=== PATIENT | male | born 1955 | race Caucasian/White ===

== ENCOUNTER 2017-02-23 15:20 | Emergency (ER) | payer BC ==
[~2017-02-23] VITALS: Ht 175.3 cm; Wt 86.4 kg
[2017-02-23 16:12] VITALS: BP 126/76
== END 2017-02-23 16:38 | disposition home or self-care (01) ==
LOC: EMS 15:24
DX: L03.115 Cellulitis of right lower limb (principal); R03.0 Elevated blood-pressure reading, without diagnosis of hypertension
CPT/HCPCS: 99283

== ENCOUNTER → 2017-04-29 | Outpatient (CLI) | payer BC ==
[~2017-04-29] VITALS: Ht 175.3 cm; Wt 86.0 kg
[~2017-04-29] MED LIST: ACET-2902 PO; BACI30OI6 TP; IBUP-2070 PO; SULF1TAB42 PO
[2017-04-29 10:25] VITALS: BP 140/79
== END | disposition home or self-care (01) ==
LOC: HBOWC 09:55
PROVIDERS: ATTEND Podiatrist
DX: L97.311 Non-pressure chronic ulcer of right ankle limited to breakdown of skin (principal)
CPT/HCPCS: 97597

== ENCOUNTER → 2017-05-07 | Outpatient (CLI) | payer BC ==
[2017-05-07 10:23] VITALS: BP 140/85
== END | disposition home or self-care (01) ==
LOC: HBOWC 10:02
PROVIDERS: ATTEND Podiatrist
DX: L97.311 Non-pressure chronic ulcer of right ankle limited to breakdown of skin (principal)
CPT/HCPCS: 97597

== ENCOUNTER → 2017-05-14 | Outpatient (CLI) | payer BC ==
[2017-05-14 11:27] VITALS: BP 132/78
== END | disposition home or self-care (01) ==
LOC: HBOWC 10:03
PROVIDERS: ATTEND Podiatrist
DX: L97.311 Non-pressure chronic ulcer of right ankle limited to breakdown of skin (principal)
CPT/HCPCS: 97597

== ENCOUNTER → 2017-05-21 | Outpatient (CLI) | payer BC ==
[2017-05-21 11:33] VITALS: BP 116/65
== END | disposition home or self-care (01) ==
LOC: HBOWC 10:59
PROVIDERS: ATTEND Podiatrist
DX: L97.311 Non-pressure chronic ulcer of right ankle limited to breakdown of skin (principal)
CPT/HCPCS: 97597

== ENCOUNTER → 2017-06-04 | Outpatient (CLI) | payer BC ==
[~2017-06-04] MED LIST changes: +COLLAGENASE 250 UNITS/GM 30 GM OINTMENT TP ONE; +LIDOCAINE HCL 2% 5 ML JELLY TP ONE
[2017-06-04 10:00] VITALS: BP 133/78
== END | disposition home or self-care (01) ==
LOC: HBOWC 10:36
PROVIDERS: ATTEND Podiatrist
DX: L97.311 Non-pressure chronic ulcer of right ankle limited to breakdown of skin (principal)
CPT/HCPCS: 97597; Z7610

== ENCOUNTER → 2017-06-11 | Outpatient (CLI) | payer BC ==
[~2017-06-11] MED LIST changes: -BACI30OI6 TP; -COLLAGENASE 250 UNITS/GM 30 GM OINTMENT TP ONE; -LIDOCAINE HCL 2% 5 ML JELLY TP ONE; -SULF1TAB42 PO
[2017-06-11 09:00] VITALS: BP 119/72
== END | disposition home or self-care (01) ==
LOC: HBOWC 08:53
PROVIDERS: ATTEND Podiatrist
DX: L97.311 Non-pressure chronic ulcer of right ankle limited to breakdown of skin (principal)
CPT/HCPCS: 97597

== ENCOUNTER → 2017-06-25 | Outpatient (CLI) | payer BC ==
[2017-06-25 09:59] VITALS: BP 134/69
== END | disposition home or self-care (01) ==
LOC: HBOWC 09:42
PROVIDERS: ATTEND Podiatrist
DX: L97.311 Non-pressure chronic ulcer of right ankle limited to breakdown of skin (principal)
CPT/HCPCS: 97597

== ENCOUNTER → 2017-07-02 | Outpatient (CLI) | payer BC ==
[2017-07-02 09:02] VITALS: BP 124/70
== END | disposition home or self-care (01) ==
LOC: HBOWC 08:47
PROVIDERS: ATTEND Podiatrist
DX: L97.311 Non-pressure chronic ulcer of right ankle limited to breakdown of skin (principal)
CPT/HCPCS: 97597

== ENCOUNTER → 2017-07-16 | Outpatient (CLI) | payer BC ==
[2017-07-16 09:29] VITALS: BP 113/54
== END | disposition home or self-care (01) ==
LOC: HBOWC 08:35
PROVIDERS: ATTEND Podiatrist
DX: L97.311 Non-pressure chronic ulcer of right ankle limited to breakdown of skin (principal); L97.811 Non-pressure chronic ulcer of other part of right lower leg limited to breakdown of skin
CPT/HCPCS: 97597; 97598

== ENCOUNTER → 2017-07-23 | Outpatient (CLI) | payer BC ==
[2017-07-23 09:21] VITALS: BP 111/63
== END | disposition home or self-care (01) ==
LOC: HBOWC 08:47
PROVIDERS: ATTEND Podiatrist
DX: L97.311 Non-pressure chronic ulcer of right ankle limited to breakdown of skin (principal)
CPT/HCPCS: 97597

== ENCOUNTER → 2017-07-30 | Outpatient (CLI) | payer BC ==
[2017-07-30 09:58] VITALS: BP 124/80
== END | disposition home or self-care (01) ==
LOC: HBOWC 08:40
PROVIDERS: ATTEND Podiatrist
DX: L97.311 Non-pressure chronic ulcer of right ankle limited to breakdown of skin (principal); L97.811 Non-pressure chronic ulcer of other part of right lower leg limited to breakdown of skin
CPT/HCPCS: 11042

== ENCOUNTER → 2017-08-06 | Outpatient (CLI) | payer BC ==
[~2017-08-06] MED LIST changes: +LIDOCAINE HCL 2% 5 ML JELLY TP ONE
[2017-08-06 09:09] VITALS: BP 123/77
== END | disposition home or self-care (01) ==
LOC: HBOWC 08:42
PROVIDERS: ATTEND Podiatrist
DX: L97.311 Non-pressure chronic ulcer of right ankle limited to breakdown of skin (principal); L97.811 Non-pressure chronic ulcer of other part of right lower leg limited to breakdown of skin
CPT/HCPCS: 97597

== ENCOUNTER → 2017-08-13 | Outpatient (CLI) | payer BC ==
[~2017-08-13] MED LIST changes: -LIDOCAINE HCL 2% 5 ML JELLY TP ONE; +LIDOCAINE HCL 4% 50 ML SOLUTION TP ONE
[2017-08-13 12:01] VITALS: BP 122/77
== END | disposition home or self-care (01) ==
LOC: HBOWC 09:48
PROVIDERS: ATTEND Podiatrist
DX: L97.311 Non-pressure chronic ulcer of right ankle limited to breakdown of skin (principal)
CPT/HCPCS: 97597; 97598

== ENCOUNTER → 2017-08-20 | Outpatient (CLI) | payer BC ==
[~2017-08-20] MED LIST changes: +LIDOCAINE HCL 2%/EPI 1:200,000/PF 10 ML VIAL INJ ONE; -LIDOCAINE HCL 4% 50 ML SOLUTION TP ONE
[2017-08-20 09:41] VITALS: BP 124/75
== END | disposition home or self-care (01) ==
LOC: HBOWC 08:40
PROVIDERS: ATTEND Podiatrist
DX: L97.311 Non-pressure chronic ulcer of right ankle limited to breakdown of skin (principal); L97.811 Non-pressure chronic ulcer of other part of right lower leg limited to breakdown of skin
CPT/HCPCS: 11100; X6474

== ENCOUNTER → 2017-08-27 | Outpatient (CLI) | payer BC ==
[~2017-08-27] MED LIST changes: +LIDOCAINE HCL 2% 5 ML JELLY TP ONE; -LIDOCAINE HCL 2%/EPI 1:200,000/PF 10 ML VIAL INJ ONE
[2017-08-27 09:23] VITALS: BP 126/70
== END | disposition home or self-care (01) ==
LOC: HBOWC 08:45
PROVIDERS: ATTEND Podiatrist
DX: L97.811 Non-pressure chronic ulcer of other part of right lower leg limited to breakdown of skin (principal)
CPT/HCPCS: 97597

== ENCOUNTER → 2017-09-03 | Outpatient (CLI) | payer BC ==
[~2017-09-03] MED LIST changes: -LIDOCAINE HCL 2% 5 ML JELLY TP ONE
[2017-09-03 10:06] VITALS: BP 124/79
== END | disposition home or self-care (01) ==
LOC: HBOWC 08:53
PROVIDERS: ATTEND Podiatrist
DX: L97.811 Non-pressure chronic ulcer of other part of right lower leg limited to breakdown of skin (principal)
CPT/HCPCS: 97597

== ENCOUNTER → 2017-09-10 | Outpatient (CLI) | payer BC ==
[~2017-09-10] MED LIST changes: +LIDOCAINE HCL 2% 5 ML JELLY TP ONE
[2017-09-10 10:15] VITALS: BP 135/79
== END | disposition home or self-care (01) ==
LOC: HBOWC 09:39
PROVIDERS: ATTEND Podiatrist
DX: L97.811 Non-pressure chronic ulcer of other part of right lower leg limited to breakdown of skin (principal)
CPT/HCPCS: 97597

== ENCOUNTER → 2017-09-17 | Outpatient (CLI) | payer BC ==
[~2017-09-17] MED LIST changes: -LIDOCAINE HCL 2% 5 ML JELLY TP ONE
[2017-09-17 10:02] VITALS: BP 121/64
== END | disposition home or self-care (01) ==
LOC: HBOWC 09:46
PROVIDERS: ATTEND Podiatrist
DX: L97.811 Non-pressure chronic ulcer of other part of right lower leg limited to breakdown of skin (principal)
CPT/HCPCS: 97597

== ENCOUNTER → 2017-09-24 | Outpatient (CLI) | payer BC ==
[~2017-09-24] MED LIST changes: +LIDOCAINE HCL 2% 5 ML JELLY TP ONE
[2017-09-24 10:28] VITALS: BP 131/72
== END | disposition home or self-care (01) ==
LOC: HBOWC 09:25
PROVIDERS: ATTEND Podiatrist
DX: L97.811 Non-pressure chronic ulcer of other part of right lower leg limited to breakdown of skin (principal)
CPT/HCPCS: 97597

== ENCOUNTER → 2017-10-01 | Outpatient (CLI) | payer BC ==
[~2017-10-01] MED LIST changes: -LIDOCAINE HCL 2% 5 ML JELLY TP ONE
[2017-10-01 10:00] VITALS: BP 134/77
== END | disposition home or self-care (01) ==
LOC: HBOWC 09:37
PROVIDERS: ATTEND Podiatrist
DX: L97.811 Non-pressure chronic ulcer of other part of right lower leg limited to breakdown of skin (principal)
CPT/HCPCS: 97597

== ENCOUNTER → 2017-10-15 | Outpatient (CLI) | payer BC ==
[~2017-10-15] MED LIST changes: +HYDROCORTISONE 1% 30 GM OINTMENT TP ONE
[2017-10-15 09:31] VITALS: BP 127/88
== END | disposition home or self-care (01) ==
LOC: HBOWC 08:51
PROVIDERS: ATTEND Podiatrist
DX: L97.811 Non-pressure chronic ulcer of other part of right lower leg limited to breakdown of skin (principal)
CPT/HCPCS: 11042

== ENCOUNTER → 2017-10-22 | Outpatient (CLI) | payer BC ==
[~2017-10-22] MED LIST changes: -HYDROCORTISONE 1% 30 GM OINTMENT TP ONE
[2017-10-22 09:50] VITALS: BP 122/74
== END | disposition home or self-care (01) ==
LOC: HBOWC 09:36
PROVIDERS: ATTEND Podiatrist
DX: L97.811 Non-pressure chronic ulcer of other part of right lower leg limited to breakdown of skin (principal)
CPT/HCPCS: 97597

== ENCOUNTER → 2017-11-05 | Outpatient (CLI) | payer BC ==
[2017-11-05 10:04] VITALS: BP 117/76
== END | disposition home or self-care (01) ==
LOC: HBOWC 09:36
PROVIDERS: ATTEND Podiatrist
DX: L97.811 Non-pressure chronic ulcer of other part of right lower leg limited to breakdown of skin (principal)
CPT/HCPCS: 97597

== ENCOUNTER → 2017-11-12 | Outpatient (CLI) | payer BC ==
[2017-11-12 11:07] VITALS: BP 122/73
== END | disposition home or self-care (01) ==
LOC: HBOWC 09:47
PROVIDERS: ATTEND Podiatrist
DX: L97.811 Non-pressure chronic ulcer of other part of right lower leg limited to breakdown of skin (principal)
CPT/HCPCS: 97597

== ENCOUNTER → 2017-11-19 | Outpatient (CLI) | payer BC ==
[2017-11-19 08:58] VITALS: BP 136/78
== END | disposition home or self-care (01) ==
LOC: HBOWC 08:39
PROVIDERS: ATTEND Podiatrist
DX: L97.811 Non-pressure chronic ulcer of other part of right lower leg limited to breakdown of skin (principal)
CPT/HCPCS: 97597

== ENCOUNTER → 2017-12-03 | Outpatient (CLI) | payer BC ==
[2017-12-03 10:12] VITALS: BP 126/71
== END | disposition home or self-care (01) ==
LOC: HBOWC 09:48
PROVIDERS: ATTEND Podiatrist
DX: L97.811 Non-pressure chronic ulcer of other part of right lower leg limited to breakdown of skin (principal)
CPT/HCPCS: 97597

== ENCOUNTER → 2017-12-10 | Outpatient (CLI) | payer BC ==
[2017-12-10 10:47] VITALS: BP 116/63
== END | disposition home or self-care (01) ==
LOC: HBOWC 10:36
PROVIDERS: ATTEND Podiatrist
DX: L97.811 Non-pressure chronic ulcer of other part of right lower leg limited to breakdown of skin (principal)

== ENCOUNTER → 2019-01-06 | Outpatient (CLI) | payer BC ==
[~2019-01-06] VITALS: Ht 175.3 cm; Wt 83.0 kg
[2019-01-06 10:22] VITALS: BP 132/79
== END | disposition home or self-care (01) ==
LOC: HBOWC 09:28
PROVIDERS: ATTEND Podiatrist
DX: L97.312 Non-pressure chronic ulcer of right ankle with fat layer exposed (principal); F17.200 Nicotine dependence, unspecified, uncomplicated
CPT/HCPCS: 11042